=== PATIENT | male | born 1945 | race Caucasian/White ===

== ENCOUNTER 2020-12-19 09:46 | Emergency (ER) | payer MEDICARE, OTHER ==
[~2020-12-19 09:46] MED LIST: ALEVE220 MG PO; DICLOFENAC SODI75 MG PO; NORCO 5-325 TA1 EACH PO; PERCOCET 5-3251 EACH PO
[2020-12-19] MEDS ORDERED: PREDNISONE 20MG20 MG PO (13:41)
[2020-12-19] MEDS ORDERED: CYCLOBENZAPRINE10 MG PO (13:41)
[2020-12-19 14:04] LABS: BILIRUBIN NEGATIVE (NEGATIVE); BLOOD TRACE-INTACT Ery/uL (NEGATIVE); CLARITY CLEAR (CLEAR); COLOR YELLOW (YELLOW); GLUCOSE (U) NORMAL (NORMAL); LEUKOCYTES NEGATIVE Leu/uL (NEGATIVE); NITRITE NEGATIVE (NEGATIVE); PROTEIN NEGATIVE (NEGATIVE); SPECIFIC GRAVITY >=1.030 (1.001-1.030); UROBILINOGEN 0.2 mg/dL (0.2-1.0); pH 5.5 (5.0-9.0)
[2020-12-19 14:28] LABS: BACTERIA TRACE; MUCOUS MODERATE
== END 2020-12-19 14:00 | disposition home or self-care (01) ==
LOC: FER 09:46
PROVIDERS: Emergency Medicine
DX: S39.012A Strain of muscle, fascia and tendon of lower back, initial encounter (principal); I10 Essential (primary) hypertension; X58.XXXA Exposure to other specified factors, initial encounter
CPT/HCPCS: 72100; 81001; J1885